=== PATIENT | male | born 1980 | race Caucasian/White ===

== ENCOUNTER 2022-11-12 05:00 | Emergency (ER) | payer OTHER | END 2022-11-12 06:08 | LOC: VM.ED 05:00 | DX: M25.511 Pain in right shoulder (principal); F17.210 Nicotine dependence, cigarettes, uncomplicated; V89.2XXA Person injured in unspecified motor-vehicle accident, traffic, initial encounter | CPT/HCPCS: 99284 ==

== ENCOUNTER 2022-12-31 16:39 | Emergency (ER) | payer SELFPAY ==
[2022-12-31 17:26] LABS: BASOPHILS PERCENT AUTO 0.3 % (0.2-1.2); EOSINOPHILS ABSOLUTE AUTO 0.2 x10^3/uL (0.0-0.5); EOSINOPHILS PERCENT AUTO 2.8 % (0.0-4.0); HEMOGLOBIN 15.1 g/dL (14.0-18.0); IMMATURE GRAN ABSOLUTE AUTO 0.01 x10^3/uL (0.00-0.07); LYMPHOCYTES ABSOLUTE AUTO 2.2 x10^3/uL (1.0-4.8); LYMPHOCYTES PERCENT AUTO 36.2 % (25.0-50.0); MEAN CORPUSCULAR HEMOGLOBIN 28.9 pg (26.0-32.0); MEAN CORPUSCULAR VOLUME 80.5 fL (78.0-93.0); MONOCYTES ABSOLUTE AUTO 0.5 x10^3/uL (0.0-0.8); MONOCYTES PERCENT AUTO 7.9 % (2.0-11.0); NEUTROPHILS ABSOLUTE AUTO 3.2 x10^3/uL (1.8-7.7); NEUTROPHILS PERCENT AUTO 52.6 % (50.0-80.0); PLATELET COUNT,PLT 199 x10^3/uL (130-400); RED BLOOD CELL COUNT 5.22 x10^6/uL (4.5-6.0); WHITE BLOOD CELL COUNT,WBC 6.1 x10^3/uL (4.0-10.0)
[2022-12-31 17:50] LABS: A/G RATIO 1.17; ALANINE AMINOTRANSFERASE,ALT 26 U/L (16-63); ALBUMIN 4.1 g/dL (3.4-5.0); ALKALINE PHOSPHATASE 79 U/L (46-116); ASPARTATE AMNIOTRANSFERASE,AST 16 U/L (15-37); BILIRUBIN TOTAL 0.4 mg/dL (0.2-1.0); BLOOD UREA NITROGEN,BUN 20 mg/dL (7-18); C-REACTIVE PROTEIN 0.09 mg/dL (<=0.30); CARBON DIOXIDE,CO2 29 mmol/L (21-32); CHLORIDE,CL 100 mmol/L (98-107); CREATINE KINASE,CK 31 U/L (39-308); CREATININE 0.9 mg/dL (0.70-1.30); GLUCOSE RANDOM 101 mg/dL (70-99); LACTATE DEHYDROGENASE,LDH 139 U/L (85-227); PROTEIN TOTAL,TP 7.6 g/dL (6.4-8.2); SODIUM,NA 139 mmol/L (136-145)
[2022-12-31 17:52] LABS: ESTIMATED GFR 109 mL/min (>=60)
[2022-12-31 18:20] LABS: APPEARANCE,URINE CLEAR (CLEAR); BILIRUBIN,URINE NEGATIVE (NEGATIVE); COLOR,URINE DARK YELLOW (YELLOW); GLUCOSE,URINE NEGATIVE (NEGATIVE); KETONES,URINE NEGATIVE (NEGATIVE); LEUKOCYTE ESTERASE,URINE NEGATIVE (NEGATIVE); NITRITE,URINE NEGATIVE (NEGATIVE); OCCULT BLOOD,URINE NEGATIVE (NEGATIVE); PH,URINE 6.5 (5.0-8.0); PROTEIN,URINE NEGATIVE (NEGATIVE); UROBILINOGEN,URINE 0.2 EU/dL (0.2)
== END 2022-12-31 19:09 | disposition home or self-care (01) ==
LOC: VM.ED 16:39
DX: R55 Syncope and collapse (principal)
CPT/HCPCS: 36415; 70450; 71046; 72125; 80053; 81003; 82550; 83615; 84484; 85025; 86140; 93005; 93010; 99284; 99285

== ENCOUNTER 2023-03-04 21:46 | Emergency (ER) | payer OTHER ==
[2023-03-04] MEDS ORDERED: Ibuprofen 200 MG Tab PO STA (22:38)
== END 2023-03-04 22:45 | disposition home or self-care (01) ==
LOC: VM.ED 21:46
DX: S63.501A Unspecified sprain of right wrist, initial encounter (principal); I10 Essential (primary) hypertension; Z79.82 Long term (current) use of aspirin; Z79.899 Other long term (current) drug therapy; W01.0XXA Fall on same level from slipping, tripping and stumbling without subsequent striking against object, initial encounter
CPT/HCPCS: 73110; 73130; 99283; A9270